=== PATIENT | female | born 1970 | race Caucasian/White ===

== ENCOUNTER 2017-11-23 21:39 | Observation (INO) | payer OTHER ==
--- NOTE | 2017-11-23 22:12 | HP ---
H&P (Free Text) History and Physical: PCP: none Date/Time: 11/23/20170 CC: AMS HPI: Mrs Fragoso is a 47YO female HX alcoholism, alcoholic pancreatitis, HTN, anxiety/depression who called her sister today reporting that she did not remember anything since Mother's Day. She reports to me that she is uncertain why she went to [place], but appears tearful and with support is able to give a history with details supplemented by her sister. She denies focal W/N/T, chest pain, SOB, N/V, sweats, F/C/, diarrhea, cough, congestion, or other issues. Today she felt as though her gait was off, she needed to hold things to steady herself, and her speech was slurred. When asked how much she drank today , she only admits to 1 beer aroud 0330 this AM. I confronted her with the blood alcohol level from [place] of 274, but she remains in denial of her drinking. Her sister, however, volunteers that she has a drinking problem that she had previously hidden from family and seems accepting of the discussion. Neither the patient nor her sister can give a time of onset. PMedHx HTN alcoholism alcoholic pancreatitis HTN anxiety depression Medications: Nursing to reconcile. Allergies: Nursing to enter. PSurgHx hysterectomy (benign) cholecystectomy R knee ORIF SocHx: 1.5PPD cigarettes, undisclosed alcohol consumption, denies recreational drugs; lives with her ; full code status FamHx: Mother passed at 61 2nd CAD/TN. Father passed at 65 2nd esophageal CA. ROS: as above, otherwise reviewed and all were negative vitals: Vital Signs Temp 36.7 C 11/23/17 21:44 Pulse 84 11/23/17 21:44 Resp 18 11/23/17 21:44 BP 147/95 11/23/17 21:44 Pulse Ox 97 11/23/17 21:44 Intake & Output 11/22/17 11/23/17 11/23/17 23:59 11:59 23:59 Intake Total 0 Balance 0 Weight 69.853 kg Intake: Oral 0 Constitutional: NAD, normally developed, overweight white female HEENM: atraumatic; sclera/conjunctiva: anicteric/clear; hearing: clinically intact; oropharynx: clear, mucosa moist Neck: soft tissue: no nuchal rigidity; thyroid: normal, non-tender Pulmonary: clear to auscultation bilaterally, good aeration, no accessory muscle use CV: RR/RR, normal S1S2, no carotid bruit, no jugular venous distention, 2+ B DP/ PT, no edema Abdominal: soft, non-distended, non-tender, no rebound/guarding/rigidity, normoactive bowel sounds, no hepatosplenomegaly or masses, no costovertebral angle tenderness Musculoskeletal: general: grossly intact, non-tender Integumental: normal appearance and texture of exposed skin Psychiatric orientation: AA&O to PPS affect: anxious, tearful mood: cooperative eye contact: fair content: unreliable responses: timely insight: poor Testing: ([place]) reviewed ECG, personally reviewed: NSR rate 82, no ischemia CT brain WO: IMPRESSION: Increased attenuation in the right transverse sinus may represent questionable venous thrombosis or artifact Impression: 47F HX active alcoholism in denial presents to [facility] [place] ED intoxicated with a blood alcohol of 274, AMS, and a CT brain WO read as ? R transverse sinus thrombosis DIAGNOSIS & PLAN Primary AMS : suspect 2nd acute alcohol intoxication : IVFs, monitor clinically abnormal finding on CT brain : likely artifact, but ? R venous sinus thrombosis : 1mg/kg enoxaparin SQ Q12H : MRI brain in AM : Scott Olvera MD neurology consulted by [facility], will arrange follow up in AM : neurochecks : supplemental oxygen : supportive care active alcoholism w/ HX alcoholic pancreatitis : [facility] protocol Secondary HTN : review meds once reconciled anxiety/depression : review meds once reconciled Admission Rational: observation for AMS ? R transverse sinus thrombosis DVTp: enoxaparin SQ 1mg/kg Code Status: full HCP:
[2017-11-23] MEDS ORDERED: Albuterol 2.5 MG/3 ML NEB.SOL* (0.083%) INH PRN (22:56)
[2017-11-23] MEDS ORDERED: Acetaminophen TAB* 325 MG PO PRN (22:56)
[2017-11-23] MEDS ORDERED: Ondansetron 40 MG VIAL* 2 MG/ML 20 ML VIAL IV PRN (22:56)
[2017-11-23] MEDS ORDERED: CMCS: Melatonin (NF) 3 MG TAB PO PRN (22:56)
[2017-11-23] MEDS ORDERED: Thiamine TAB* 100 MG TAB PO ONE (23:22)
[2017-11-23] MEDS ORDERED: Mouth Piece, Nicotine* 1 EACH CARTRIDGE INH ONE (23:22)
[2017-11-23] MEDS ORDERED: Nicotine Inhaler* 10 MG AMP INH PRN (23:22)
[2017-11-23] MEDS: NS 0.9% 1000 ML* 1,000 ML IV SCH (23:24)
[2017-11-23] MEDS ORDERED: Enoxaparin(*) 80 MG/0.8 ML SYR SUBCUT SCH (23:45)
[2017-11-23] MEDS ORDERED: LORazepam INJ* 2 MG/ML 1 ML VIAL IV PUSH SCH (23:45)
[2017-11-24] MEDS: LORazepam TAB(*) 1 MG PO SCH ×2 (00:22→07:53)
[2017-11-24] MEDS ORDERED: Omeprazole CAP* 20 MG PO SCH (06:00)
[2017-11-24 06:42] LABS: Hematocrit 39 % (35-47); Hemoglobin 13.4 g/dl (12.0-16.0); Mean Corpuscular HGB Conc 35 g/dl (31-36); Mean Corpuscular Hemoglobin 35 pg (27-31); Mean Corpuscular Volume 102 fL (80-97); Mean Platelet Volume 8.3 um3 (7.4-10.4); Platelet Count 189 10^3/ul (150-450); Red Blood Count 3.83 10^6/ul (4.0-5.4); Red Cell Distribution Width 16 % (10.5-15)
[2017-11-24 06:58] LABS: EGFR Non-African American 146.2 (>60)
[2017-11-24] MEDS ORDERED: Mometasone/Formoter 200/5 MDI INH SCH (09:00)
[2017-11-24] MEDS ORDERED: Spiriva Inhaler DEVICE* 1 EACH DEVICE INH ONE (09:00)
[2017-11-24] MEDS ORDERED: Thiamine TAB* 100 MG TAB PO SCH (09:00)
[2017-11-24] MEDS ORDERED: Folic Acid TAB* 1 MG PO SCH (09:00)
[2017-11-24] MEDS ORDERED: Tiotropium CAP.INH* CAP.INH/18 MCG (USE ORDER SET !) INH SCH (09:00)
[2017-11-24] MEDS ORDERED: Multivitamins/Minerals TAB PO SCH (09:00)
[2017-11-24] MEDS ORDERED: Docusate CAP* 100 MG PO SCH (09:00)
[2017-11-24] MEDS: NS 0.9% 1000 ML* 1,000 ML IV SCH (10:08)
--- NOTE | 2017-11-24 10:56 | RAD ---
HISTORY: Question transverse sinus thrombosis on outside CT COMPARISONS: None relevant available at the time of dictation TECHNIQUE: The following sequences were obtained of the head: Sagittal T1-weighted images, axial T2-weighted images, axial FLAIR images, axial susceptibility weighted images, axial T1-weighted images. Additionally, axial diffusion-weighted images were obtained with calculated apparent diffusion coefficients. FINDINGS: HEMORRHAGE/INFARCT: There is no hemorrhage or acute infarct. MASSES/SHIFT: There is no mass or shift. EXTRA-AXIAL SPACES/MENINGES: There are no extra-axial fluid collections. SULCI AND VENTRICLES: The sulci and ventricles are normal in size and position for the patient's stated age. CEREBRUM: There are no focal parenchymal abnormalities. BRAINSTEM: There are no focal parenchymal abnormalities. CEREBELLUM: There are no focal parenchymal abnormalities. The cerebellar tonsils are normal in size and position. SELLA: The sella is normal. PINEAL: The pineal region is clear. CP ANGLE/TEMPORAL BONES: The labyrinthine structures are grossly normal. VESSELS: Normal flow-voids are noted within the visualized vertebral vasculature. DIFFUSION ABNORMALITIES: There are no diffusion abnormalities. PARANASAL SINUSES/MASTOIDS: The paranasal sinuses are clear. ORBITS: The orbits are unremarkable. BONES AND SOFT TISSUE: No bone or soft tissue abnormalities are noted. OTHER: None IMPRESSION: UNREMARKABLE MRI OF THE BRAIN. CONTRAST ENHANCED MR OR CT VENOGRAPHY WILL BE MORE SENSITIVE FOR THE DETECTION OF VENOUS SINUS THROMBOSIS.
[2017-11-24 12:42] VITALS: BP 163/90
[2017-11-24] MEDS ORDERED: ALPRAZolam TAB* 0.5 MG PO PRN (13:17)
[2017-11-24] MEDS ORDERED: Senna TAB PO PRN (13:17)
[2017-11-24] MEDS ORDERED: Ondansetron TAB* 4 MG PO PRN (13:17)
[2017-11-24] MEDS ORDERED: Docusate CAP* 100 MG PO PRN (13:17)
--- NOTE | 2017-11-24 13:27 | PN ---
Subjective Date of Service: 11/24/17 Interval History: Ms. Fragoso denies complaint other than being hungry and anxious for discharge. She specifically denies chest pain, SOB, nausea, or abdominal pain. Visitors at the bedside report that her mental status is at baseline. Objective Active Medications: Acetaminophen (Tylenol Tab*) 650 mg PO Q6H PRN Albuterol (Ventolin 2.5 Mg/3 Ml Neb.Halie*) 2.5 mg INH Q2H PRN Docusate Sodium (Colace Cap*) 200 mg PO BID GILBERTO Enoxaparin Sodium (Lovenox(*)) 70 mg SUBCUT 0300,1500 GILBERTO Folic Acid (Folvite Tab*) 1 mg PO DAILY GILBERTO Sodium Chloride (Ns 0.9% 1000 Ml*) 1,000 mls @ 100 mls/hr IV PER RATE GILBERTO Lorazepam (Ativan Inj*) 0 - 6 mg IV PUSH .PER [facility] PROTOCOL GILBERTO Lorazepam (Ativan Tab(*)) 2 mg PO Q8H GILBERTO Melatonin (Melatonin (Nf)) 3 mg PO BEDTIME PRN; Protocol Mometasone Furoate/Formoterol Fumar (Dulera 200/5 Mdi*) 2 puff INH BID GILBERTO Multivitamins/Minerals (Theragran/Minerals Tab*) 1 tab PO DAILY GILBERTO Nicotine (Nicotine Inhaler*) 10 mg INH Q2H PRN Omeprazole (Prilosec Cap*) 20 mg PO DAILY@0600 GILBERTO Ondansetron HCl (Zofran 40 Mg Vial*) 4 mg IV Q6H PRN Thiamine HCl (Vitamin B-1 Tab*) 100 mg PO DAILY GILBERTO Tiotropium Hankins (Spiriva Cap.Inh*) 1 cap INH DAILY [facility] Vital Signs: Temp Pulse Resp BP Pulse Ox 97.6 F 83 18 163/90 99 11/24/17 12:03 11/24/17 12:03 11/24/17 12:41 11/24/17 12:03 11/24/17 12:03 Oxygen Devices in Use Now: None Appearance: Female sitting up in bed in NAD Eyes: No Scleral Icterus Ears/Nose/Mouth/Throat: NL Teeth, Lips, Gums, - - mucous membranes dry Neck: NL Appearance and Movements; NL JVP, Trachea Midline Respiratory: Symmetrical Chest Expansion and Respiratory Effort, Clear to Auscultation Cardiovascular: NL Sounds; No Murmurs; No JVD, No Edema Abdominal: NL Sounds; No Tenderness; No Distention Lymphatic: No Cervical Adenopathy Extremities: No Edema Skin: No Rash or Ulcers Neurological: Alert and Oriented x 3, NL Muscle Strength and Tone Result Diagrams: 11/24/17 06:23 11/24/17 06:23 Assess/Plan/Problems-Billing Assessment: Ms. Fragoso is a 47 yo female with a PMH of alcoholism who was admitted from [facility] with altered mental status and reported memory loss in setting of alcohol intoxication with CT finding of sinus venous thrombosis. - Patient Problems (1) Altered mental status Comment: - Suspect related to etoh intoxication and prolonged abuse. Patient not interested in detoxification. - MRI brain could not rule out sinus thrombosis, CT venogram negative. D/C lovenox. Appreciate Neurology consult. (2) Anxiety Comment: - Continue xanax prn. (3) Nicotine abuse Comment: - Nicotine replacement available. (4) DVT prophylaxis Comment: - Lovenox. (5) Full code status Comment: Status and Disposition: OBV. Discharge to home.
[2017-11-24] MEDS ORDERED: Iohexol 350* (CONTRAST) 500 ML MDV IV ONE ×2 (13:54→14:23)
--- NOTE | 2017-11-24 14:35 | RAD ---
HISTORY: Possible sinus thrombosis COMPARISONS: MRI dated November 24, 2014 TECHNIQUE: Contrast-enhanced axial images were obtained of the brain during venous phase with coronal and sagittal multiplanar reformations as part of a CT venogram. FINDINGS: VENOUS SINUSES: The venous sinuses are patent. There is no stenosis or occlusion. There is no filling defect to suggest thrombosis. The right transverse-sigmoid system is dominant over the left. DEEP VEINS: The deep veins are patent. The internal cerebral veins are dominant over the basal veins of Yonis. OTHER FINDINGS: Incidentally noted is a dysraphic defect of the posterior arch of C1 IMPRESSION: NO VENOUS SINUS THROMBOSIS.
[2017-11-24] MEDS ORDERED: Enoxaparin(*) 80 MG/0.8 ML SYR SUBCUT SCH (15:00)
--- NOTE | 2017-11-24 21:49 | CONS ---
CC: Dr. Linares * CONSULTATION REPORT: DATE OF CONSULT: 11/24/17 PATIENT OF: Betsy Frederick NP HISTORY OF PRESENT ILLNESS: This is a 47-year-old woman who presented to [place] yesterday with slurred speech, ataxia, with elevated alcohol level 274. This has improved over the course of the 24 hours. She was transferred from [place] to here because there was a CT scan that raised the possibility of possible right transverse sinus thrombosis and they do not have a CTA or MRI there. She has had no focal numbness, weakness. She is now admitting to her alcoholism and her family said that they had taken alcohol out of the home. PAST MEDICAL HISTORY: She also has a history of hypertension, alcoholic pancreatitis, anxiety, and depression. MEDICATIONS: At home include: 1. Xanax 0.5 b.i.d. p.r.n. 2. Zofran 4 mg q.6 hours p.r.n. 3. Protonix 40 mg daily. 4. Mag oxide 400 daily. 5. Colace 200 p.r.n. 6. Estradiol 0.5 daily. 7. Senokot 1 tab p.r.n. She has been started on: 1. Lorazepam. 2. WAM protocol. 3. Thiamine. 4. Ativan. 5. She is on Dulera inhaler 2 puffs b.i.d. as well. ALLERGIES: She has no known allergies. FAMILY HISTORY: Mom of a heart attack at 62. Father at 65 of esophageal cancer. SOCIAL HISTORY: One and half pack per day cigarettes. Some significant degree of alcohol consumption, not fully admitted to. No recreational drugs. REVIEW OF SYSTEMS: Negative in all 14 spheres other than HPI. PHYSICAL EXAM: Temperature 97.6, pulse 83, respirations 18, blood pressure 163/ 90. She is alert and oriented with normal speech and comprehension. Cranial nerves II through XII were intact. Fundi were benign. There was no nystagmus. Finger-to- nose was intact. There was no liver flap. Strength was 5/5. Gait was minimally unsteady and she says that this is unchanged from her and this is her baseline. Reflexes were 3 and equal in the arms and legs with downgoing toes. Chest: Clear. Cardiovascular: Regular rate and rhythm. Abdomen: Soft with positive bowel sounds. DIAGNOSTIC STUDIES/LAB DATA: Her CTA and venogram are negative. Her MRI scan was also reviewed and was negative for any acute findings. The sulci were prominent, but it could be just her normal variation on the MRI scan, but could also represent the beginning of atrophy. 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 Labs include normal CBC other than MCV of 102. BMP was normal other than sodium of 136. ASSESSMENT AND PLAN: I discussed with family and Betsy Otoniel that there was no evidence of thrombosis or any venous stroke on MRI scan or her CT vascular studies and the CT was an artifact. I think her symptoms were secondary to her acute alcoholism and sounds like she is a chronic alcoholic and I defer to Betsy Torres and her primary doctor for optimal management of that. I did discuss with her that there are some findings on MRI scan that suggest that the alcohol may be affecting her brain on a chronic basis already. Thank you for sharing her case. [id number]/[facility] #: [id number] SINDI
--- NOTE | 2017-11-25 05:53 | DS ---
CC: Dr. Vilma Linares * [facility] MEDICINE DISCHARGE SUMMARY: DATE OF ADMISSION: 11/23/17 DATE OF DISCHARGE: 11/24/17 PRIMARY CARE PHYSICIAN: Dr. Vilma Linares. ATTENDING PHYSICIAN: Dr. Adryan Chaves * (dictation provided by Betsy Frederick NP). PRIMARY DIAGNOSES: 1. Altered mental status secondary to chronic alcohol abuse and intoxication. 2. Ruled out sinus venous thrombosis. SECONDARY DIAGNOSES: 1. Hypertension. 2. Alcoholism. 3. Alcoholic pancreatitis. 4. Anxiety. 5. Depression. MEDICATIONS: At the time of discharge are unchanged. They are: 1. Senna 1 tab p.o. daily p.r.n. 2. Estradiol 0.5 mg p.o. daily. 3. Docusate 200 mg p.o. daily p.r.n. 4. Magnesium oxide 400 mg p.o. daily. 5. Pantoprazole 40 mg p.o. daily. 6. Zofran 4 mg p.o. q.6 hours p.r.n. 7. Alprazolam 0.5 mg p.o. b.i.d. p.r.n. HOSPITAL COURSE: Ms. Fragoso is a 47-year-old female with a past medical history of hypertension and alcoholism, who presented to the hospital on with concern for altered mental status in transfer from [facility]. Please see the dictated H and P from Dr. Ant Nye for complete details. In brief, the patient is reported to have called family members saying that she could "not remember anything since Mother's Day." She was not sure why she went to [facility] and was very tearful. At [facility], she had a CT scan of the brain, which showed concern for a sinus venous thrombosis in the right transverse sinus, and therefore, she was transferred to [facility] for further evaluation. Ms. Fragoso went on for an MRI of the brain, which showed no evidence of thrombosis, but a CT venogram was recommended and performed for a more confirmatory testing. CT venogram has been done and did not show sinus venous thrombosis. The patient had been on Lovenox while this was ruled out and this is now being discontinued. The patient has been seen by Dr. Olvera, who agrees with the reading from Radiology and also agrees with our estimation that her symptoms are likely related to chronic alcoholism and acute intoxication. Ms. Fragoso is not interested in detoxification or any form of rehabilitation or therapy at this point and is medically stable for discharge to home. DISPOSITION: Home. DIET: Regular. ACTIVITY: As tolerated. FOLLOWUP PLANS: Please follow up with Dr. Linares regarding continued medical management of your multiple medical problems as well as support with rehabilitation strategies for alcoholism. TIME SPENT: Approximately 60 minutes was spent on the discharge of this patient , more than half that time spent with the patient at the bedside reviewing the events leading up to this hospitalization, performing the physical examination, and reviewing my plan of care. BETSY FREDERICK NP [id number]/[facility] #: [id number] SINDI
[2017-11-25] MEDS ORDERED: Omeprazole CAP* 20 MG PO SCH (07:30)
[2017-11-25] MEDS ORDERED: Magnesium Oxide TAB* 400 MG PO SCH (09:00)
== END 2017-11-24 16:00 | disposition home or self-care (01) ==
LOC: MEDTELE 21:39 → INTOOBSV 21:39
PROVIDERS: ADMIT Hospitalist; ATTEND Student in an Organized Health Care Education/Training Program
DX: F10.229 Alcohol dependence with intoxication, unspecified (principal); I10 Essential (primary) hypertension; K85.20 Alcohol induced acute pancreatitis without necrosis or infection; F41.9 Anxiety disorder, unspecified; F32.9 Major depressive disorder, single episode, unspecified; Y90.8 Blood alcohol level of 240 mg/100 ml or more; F17.210 Nicotine dependence, cigarettes, uncomplicated
CPT/HCPCS: 36415; 70496; 70551; 80048; 85027; 96374; A9270-GY; G0378; G8978-GP-CH; G8979-GP-CH; G8980-GP-CH; J1650; J2060; J2405; Q9967